=== PATIENT | female | born 1930 | race Caucasian/White ===

== ENCOUNTER 2019-10-09 | Emergency (ER) | payer MEDICARE, BC ==
[~2019-10-09] MED LIST: CIPROFLOXACN500 MG PO; DARVOCET-N 100100 MG OR; LEVOTHYROXIN75 MCG OR; LISINOPRIL20 MG PO; LOPRESSOR50 MG OR; NAPROSYN500 MG PO; PRAVACHOL40 MG PO; PREDNISONE5 MG OR; RANITIDINE150 M1 OR; ROBITUSSIN AC10 ML OR; ZOCOR20 MG OR; ZPAK OR
[2019-10-09 09:21] LABS: HEMATOCRIT 32.1 % (37.0-47.0); HEMOGLOBIN 10.2 g/dl (12.0-16.0); IMMATURE GRANULOCYTES 0.4 % (0.0-5.0); MEAN CELL VOLUME 90.7 fL CALC (80.0-100.0); MEAN CORPUSCULAR HGB 28.8 pG CALC (26.0-32.0); MEAN CORPUSCULAR HGB CONC 31.8 g/L CALC (32.0-36.0); NEUT# 5.07 thou/uL (2.00-7.15); RED BLOOD COUNT 3.54 mill/uL (4.20-5.60); RED CELL DISTRI WIDTH 12.7 % (11.5-15.5)
[2019-10-09 09:38] LABS: ALBUMIN 3.3 g/dL (3.2-5.0); ALKALINE PHOSPHATASE 80 u/l (38-126); BUN 18 mg/dL (8-23); BUN/CREATININE RATIO 20 (12-20 (CALC)); CARBON DIOXIDE 24 mmol/l (22-30); CHLORIDE 98 mmol/l (95-108); CREATININE 0.9 mg/dL (0.5-1.0); GFR 59 ML/MIN (>=60 (CALC)); GFR FOR AFR.AMER. > 60 ML/MIN (>=60 (CALC)); LIPASE 173 u/l (23-300); POTASSIUM 4.5 mmol/l (3.5-5.1); SGOT/AST 26 u/l (9-36); TOTAL PROTEIN 6.5 g/dL (6.3-8.2)
[2019-10-09 09:41] LABS: ANION GAP 14 (6-22 (CALC)); BILIRUBIN, TOTAL 0.6 mg/dL (0.0-1.4); SODIUM 131 mmol/l (137-146)
[2019-10-09] MEDS ORDERED: ONDANSETRON4 MG PO (10:08)
== END 2019-10-09 10:54 | disposition home or self-care (01) ==
PROVIDERS: Family Medicine
DX: K52.9 Noninfective gastroenteritis and colitis, unspecified (principal); I10 Essential (primary) hypertension

== ENCOUNTER 2019-10-19 | Emergency (ER) | payer MEDICARE, BC ==
[~2019-10-19] MED LIST changes: +ONDANSETRON4 MG PO
[2019-10-19 09:28] LABS: HEMATOCRIT 32.5 % (37.0-47.0); HEMOGLOBIN 10.4 g/dl (12.0-16.0); IMMATURE GRANULOCYTES 0.2 % (0.0-5.0); MEAN CORPUSCULAR HGB 28.5 pG CALC (26.0-32.0); NEUT# 2.19 thou/uL (2.00-7.15); RED BLOOD COUNT 3.65 mill/uL (4.20-5.60); RED CELL DISTRI WIDTH 13.1 % (11.5-15.5)
[2019-10-19 09:35] LABS: ALBUMIN 3.8 g/dL (3.2-5.0); BILIRUBIN, TOTAL 0.8 mg/dL (0.0-1.4); CREATININE 1.5 mg/dL (0.5-1.0); MAGNESIUM 1.9 mg/dL (1.6-2.3); POTASSIUM 4.8 mmol/l (3.5-5.1)
[2019-10-19 09:37] LABS: ACT PARTIAL THROMBO TIME 27.5 SECONDS (20.0-32.5); PROTHROMBIN TIME 10.5 SECONDS (9.0-12.5)
[2019-10-19 11:44] LABS: URINE BILIRUBIN - DIPSTICK NEGATIVE (NEGATIVE); URINE BLOOD DIPSTICK TRACE-INTACT (NEGATIVE); URINE COLOR YELLOW; URINE GLUCOSE - DIPSTICK NEGATIVE (NEGATIVE); URINE KETONE NEGATIVE (NEGATIVE); URINE LEUK ESTERASE NEGATIVE (NEGATIVE); URINE PROTEIN - DIPSTICK NEGATIVE (NEG-TRACE); URINE UROBILINOGEN - DIPSTICK 0.2 E.U./dL (0.2)
[2019-10-19 11:51] LABS: URINE NITRITE - DIPSTICK POSITIVE (Negative)
[2019-10-19 11:58] LABS: URINE BACTERIA MANY hpf
[2019-10-19] MEDS ORDERED: KEFLEX500 MG PO (12:53)
--- NOTE | 2019-10-21 14:20 | NUR ---
Called new prescription (Cefdinir 300mg PO BID x 7 days) to [facility] ( [facility]). Contacted pt to d/c cephalexin tx. and initiate cefdinir tx. Patient verbalized understanding of new tx regiment.
== END 2019-10-19 14:00 | disposition home or self-care (01) ==
DX: N39.0 Urinary tract infection, site not specified (principal); B96.20 Unspecified Escherichia coli [E. coli] as the cause of diseases classified elsewhere; E86.0 Dehydration; E87.1 Hypo-osmolality and hyponatremia; I10 Essential (primary) hypertension